=== PATIENT | female | born 1945 | race Hispanic/Latino ===

== ENCOUNTER 2017-09-13 17:18 | Emergency (ER) | payer OTHER ==
[2017-09-13] MEDS ORDERED: DEXAMETHASONE SOD PHOSPHATE 10MG/ML 1ML VIAL ONE (18:38)
[2017-09-13] MEDS ORDERED: IPRATROPIUM/ALBUTEROL SULFATE 3 ML SOLUTION IH ONE (18:44)
[2017-09-13 18:46] LABS: RAPID GROUP A STREP NEGATIVE (NEGATIVE)
== END 2017-09-13 19:14 | disposition home or self-care (01) ==
LOC: EDH 17:18
DX: J20.9 Acute bronchitis, unspecified (principal); E03.9 Hypothyroidism, unspecified; Z88.1 Allergy status to other antibiotic agents; Z98.890 Other specified postprocedural states
CPT/HCPCS: 71046; 87804 ×2; 87880; 94640; 96372; 99285; J1100

== ENCOUNTER 2022-01-21 06:38 | Day surgery (SDC) | payer OTHER ==
[2022-01-17 11:14] LABS: BASOPHILS % (AUTO) 0.7 % (0.0-5.0); EOSINOPHILS % (AUTO) 2.4 % (0.0-8.0); HEMATOCRIT 43.9 % (36-48); LYMPHOCYTES % (AUTO) 37.3 % (21.0-51.0); MEAN CORPUSCULAR HEMOGLOBIN 28.8 pg (27.0-33.0); MEAN CORPUSCULAR HGB CONC 32.6 g/dL (32.0-36.0); MEAN CORPUSCULAR VOLUME 88.3 fL (79-99); MONOCYTES % (AUTO) 9.2 % (3.0-13.0); NEUTROPHILS % (AUTO) 50.2 % (40.0-77.0); PLATELET COUNT (AUTO) 226 K/uL (130-400); RED BLOOD CELL COUNT(AUTO) 4.97 MIL/uL (4.00-5.50); RED CELL DISTRIBUTION WIDTH 13.5 % (11.0-15.5); WHITE BLOOD COUNT (AUTO) 5.5 K/uL (4.8-10.8)
[2022-01-17 11:17] LABS: CREATININE 0.7 mg/dL (0.5-1.5); POTASSIUM 3.9 mmol/L (3.5-5.1)
[2022-01-18 08:56] VITALS: BP 157/62
[2022-01-21] VITALS (10 sets, daily range): BP systolic 100–133; BP diastolic 49–70
[~2022-01-21] VITALS: Ht 157.5 cm; Wt 72.6 kg
[~2022-01-21 06:38] MED LIST: ALPR0.255 PO; LEVO137C4 PO; TRAM50TA4 PO
[2022-01-21] MEDS ORDERED: DEXAMETHASONE SOD PHOSPHATE 10MG/ML 1ML VIAL ONE (07:27)
[2022-01-21] MEDS ORDERED: MIDAZOLAM HCL 1 MG/ML 2ML VIAL ONE ×2 (07:27→09:32)
[2022-01-21] MEDS ORDERED: SUCCINYLCHOLINE 200MG/10ML SYR ONE (07:27)
[2022-01-21] MEDS ORDERED: GLYCOPYRROLATE 1 MG/5 ML SYRINGE ONE (07:27)
[2022-01-21] MEDS ORDERED: LIDOCAINE PF 100MG/5ML (2%) SYRINGE 5ML ONE (07:27)
[2022-01-21] MEDS ORDERED: PROPOFOL 10 MG/ML 20ML VIAL IV ONE (07:27)
[2022-01-21] MEDS ORDERED: NEOSTIGMINE 5MG/5ML SYR IV ONE (07:28)
[2022-01-21] MEDS ORDERED: FENTANYL CITRATE PF 50 MCG/1 ML 2ML VIAL ONE (07:28)
[2022-01-21] MEDS ORDERED: ONDANSETRON 4MG INJ ONE (07:28)
[2022-01-21] MEDS ORDERED: ROCURONIUM 10MG/1ML SYR 10 MG/ML ML ONE (07:28)
[2022-01-21] MEDS ORDERED: PHENYLEPHRINE HCL 10 MG/ML 1ML VIAL IV ONE (07:33)
[2022-01-21] MEDS ORDERED: CEFAZOLIN SODIUM 1 GM VIAL ONE (08:31)
[2022-01-21] MEDS ORDERED: LIDOCAINE HCL 1% 20 ML VIAL ONE (09:07)
[2022-01-21] MEDS ORDERED: BUPIVACAINE/PF 0.5% 30ML VIAL ONE (09:07)
== END 2022-01-21 11:20 | disposition home or self-care (01) ==
LOC: DAH 06:38
PROVIDERS: ATTEND Surgery
DX: L72.3 Sebaceous cyst (principal); L72.0 Epidermal cyst; K21.9 Gastro-esophageal reflux disease without esophagitis; G47.30 Sleep apnea, unspecified; E03.9 Hypothyroidism, unspecified; G47.00 Insomnia, unspecified; Z90.710 Acquired absence of both cervix and uterus; Z98.890 Other specified postprocedural states; Z98.891 History of uterine scar from previous surgery; Z79.899 Other long term (current) drug therapy; Z79.82 Long term (current) use of aspirin
CPT/HCPCS: 11406; 36415; 80048; 85025; 87635; 88304; A4215; A4221; A4222; A4223; A4452; A4663; C9803; J0330; J0690; J1100; J2001; J2250 ×2; J2370; J2405; J2704; J3010; J3490; J7030; J2710